=== PATIENT | female | born 1985 | race Caucasian/White ===

== ENCOUNTER 2021-05-23 11:54 | Emergency (ER) | payer BC, OTHER ==
[~2021-05-23 11:54] MED LIST: COLACE 100MG C100 MG PO; IBUPROFEN600 MG PO; NORCO 5-325 TA1 EACH PO
[2021-05-23 14:17] LABS: HEMOGLOBIN 12.8 gm/dl (12.3-15.3); RED BLOOD COUNT 4.38 M/UL (4.00-5.10); WHITE BLOOD COUNT 8.7 K/UL (4.5-11.0)
[2021-05-23 14:55] LABS: BUN/CREATININE RATIO 11 (0-10)
== END 2021-05-23 18:30 | disposition home or self-care (01) ==
LOC: ER1 11:54
PROVIDERS: Physician Assistant Medical
DX: R55 Syncope and collapse (principal); R11.0 Nausea; E03.9 Hypothyroidism, unspecified; Z90.89 Acquired absence of other organs
CPT/HCPCS: 70450; 71045; 80053; 80307; 81001; 82550; 82553; 83874; 84439; 84443; 84484; 85025; 93005; 99284; J7030

== ENCOUNTER 2021-12-04 14:21 | Outpatient (CLI) | payer BC | END 2021-12-04 19:05 | disposition home or self-care (01) | LOC: GENOP 14:21 | DX: Z04.3 Encounter for examination and observation following other accident (principal); O99.283 Endocrine, nutritional and metabolic diseases complicating pregnancy, third trimester; E03.9 Hypothyroidism, unspecified; O99.013 Anemia complicating pregnancy, third trimester; D64.9 Anemia, unspecified; Z79.899 Other long term (current) drug therapy; Z3A.34 34 weeks gestation of pregnancy | CPT/HCPCS: 59025 ==

== ENCOUNTER 2022-01-01 05:40 | Inpatient (IN) | payer BC, OTHER ==
[~2022-01-01] VITALS: Ht 177.8 cm; Wt 89.8 kg
[2022-01-01] MEDS ORDERED: LEVOTHYROXINE125 MCG PO (06:16)
[2022-01-01] MEDS ORDERED: VITAMIN D 40400 UNIT PO (06:16)
[2022-01-01] MEDS ORDERED: FERROUS SULFAT325 M2 PO (06:17)
[2022-01-01] MEDS ORDERED: MULTI-VITAMIN1 EACH PO (06:17)
[2022-01-01 06:50] LABS: HEMOGLOBIN 11.4 gm/dl (12.3-15.3); RED BLOOD COUNT 4.12 M/UL (4.00-5.10); WHITE BLOOD COUNT 9.4 K/UL (4.5-11.0)
[2022-01-01] MEDS ORDERED: COLACE 100MG C100 MG PO (08:08)
[2022-01-01] MEDS ORDERED: IBUPROFEN600 MG PO (08:08)
[2022-01-01] MEDS ORDERED: HYDROCODON-ACE1 EAC6 PO (08:08)
[2022-01-02 07:03] LABS: HEMOGLOBIN 9.8 gm/dl (12.3-15.3)
[2022-01-02] MEDS ORDERED: CYCLOBENZAPRINE10 MG PO (12:44)
== END 2022-01-02 12:40 | disposition home or self-care (01) | DRG 788 ==
LOC: OB 05:40
PROVIDERS: ADMIT Obstetrics & Gynecology
PROC: 10D00Z1 Extraction of Products of Conception, Low, Open Approach (ICD-10-PCS; principal; 2022-01-01 07:30)
DX: O34.211 Maternal care for low transverse scar from previous cesarean delivery (principal); Z37.0 Single live birth; O99.02 Anemia complicating childbirth; D64.9 Anemia, unspecified; O99.284 Endocrine, nutritional and metabolic diseases complicating childbirth; E03.9 Hypothyroidism, unspecified; D89.89 Other specified disorders involving the immune mechanism, not elsewhere classified; M54.2 Cervicalgia; O99.892 Other specified diseases and conditions complicating childbirth; Z20.822 Contact with and (suspected) exposure to COVID-19; L65.9 Nonscarring hair loss, unspecified; M79.7 Fibromyalgia; Z80.8 Family history of malignant neoplasm of other organs or systems; Z90.89 Acquired absence of other organs; Z98.84 Bariatric surgery status; Z3A.38 38 weeks gestation of pregnancy
CPT/HCPCS: 36415; 81001; 82800; 85014; 85018; 85025; C9113; J0690; J1170; J1885; J2370; J2405; J2590; J7120

== ENCOUNTER → 2022-03-16 | Outpatient (CLI) | payer BC, OTHER ==
[~2022-03-16] MED LIST changes: +CYCLOBENZAPRINE10 MG PO; +FERROUS SULFAT325 M2 PO; +HYDROCODON-ACE1 EAC6 PO; +LEVOTHYROXINE125 MCG PO; +MULTI-VITAMIN1 EACH PO; +VITAMIN D 40400 UNIT PO
== END ==
LOC: LAB 12:57
DX: Z20.822 Contact with and (suspected) exposure to COVID-19 (principal)
CPT/HCPCS: U0003